=== PATIENT | female | born 1965 | race American Indian/Alaskan Native ===

== ENCOUNTER 2017-09-12 02:22 | Emergency (ER) | payer MEDICARE ==
[2017-09-12] MEDS ORDERED: VITAMIN B-1 100 MG, FOLVITE 1 MG, INFUVITE 10 ML, MAGNESIUM SULFATE 2 GM in NACL 0.9% 1... IV ONE (03:02)
[2017-09-12] MEDS ORDERED: ATIVAN PO ONE (03:12)
--- NOTE | 2017-09-12 03:13 | Emergency Department Report ---
HPI - General Chief Complaint: Psych Time Seen by Provider: 09/12/17 03:02 - HPI HPI: [id number] The patient is a 51-year-old female presented with a chief complaint of visual hallucinations. The patient states she drinks 4-5 beers daily and attempted to detox himself by not drinking anything the past day and a half. The patient states since 23:00 this evening she began "seeing things." The patient states she sees things "moving." And she sees "people." The patient states these seem same symptoms she had when she attempted to detox earlier this year. Patient denies other complaints Location: Mental status Duration: Since 23:00 Quality: Visual hallucinations Severity: Moderate Modifying factors: [see above] Context: [see above] Mode of transportation: [not driving] ED Past Medical Hx - Past Medical History Previous Medical History?: Yes Hx Hypertension: Yes Hx Psychiatric Treatment: Yes (PT last saw an OP provider 5 years ago) Hx HIV: Yes - Surgical History Past Surgical History?: Yes Hx Cholecystectomy: Yes Additional Surgical History: . tubal ligation - Family History Family history: no significant - Social History Smoking Status: Never Smoker Substance Use Type: Alcohol - Medications Home Medications: Home Medications Medication Instructions Recorded Confirmed Last Taken Type Atazanavir Sulfate [Reyataz] 200 mg PO DAILY 04/01/14 10/23/14 10/22/14 History Emtricitabin/Tenofovir [TRUVADA 1 tab PO DAILY 04/01/14 10/23/14 10/22/14 History 200-300 mg] Ferrous Sulfate [Feosol] 325 mg PO BID #60 tablet 04/01/14 10/23/14 Unknown Rx Gabapentin [Neurontin] 600 mg PO Q8H 04/01/14 10/23/14 10/22/14 History Ritonavir [Norvir] 100 mg PO QDAY 04/01/14 10/23/14 10/22/14 History medroxyPROGESTERone ACETATE 10 mg PO QDAY #5 tablet 04/01/14 10/23/14 Unknown Rx [Provera] oxyCODONE /ACETAMINOPHEN [Percocet 1 tab PO Q6HR PRN #14 tablet 04/01/14 Unknown Rx 5/325 mg] Amoxicillin/K Clav Tab [Augmentin 1 tab PO Q12HR #20 tab 09/10/16 Unknown Rx 875 mg] Azithromycin [Zithromax Z-HEVER] 250 mg PO DAILY #6 tab 09/10/16 Unknown Rx HYDROcodone/APAP 7.5-325 [Cicero 1 each PO Q8HR PRN #15 tablet 09/10/16 Unknown Rx 7.5-325 mg TAB] Ibuprofen [Motrin] 800 mg PO Q8HR PRN #14 tablet 09/10/16 Unknown Rx ED Review of Systems ROS: Stated complaint: MH Other details as noted in HPI Comment: All other systems reviewed and negative Constitutional: denies: chills, fever Eyes: denies: eye pain, eye discharge, vision change ENT: denies: ear pain, throat pain Respiratory: denies: cough, shortness of breath, wheezing Cardiovascular: denies: chest pain, palpitations Endocrine: no symptoms reported Gastrointestinal: denies: abdominal pain, nausea, diarrhea Genitourinary: denies: urgency, dysuria, discharge Musculoskeletal: denies: back pain, joint swelling, arthralgia Skin: denies: rash, lesions Neurological: denies: headache, weakness, paresthesias Psychiatric: visual hallucinations Hematological/Lymphatic: denies: easy bleeding, easy bruising Physical Exam - Physical Exam Vital Signs: Vital Signs 09/12/17 09/12/17 09/12/17 02:26 02:29 02:58 Temperature 97.5 F L 97.5 F L 97.6 F Pulse Rate 96 H 113 H 97 H Respiratory 20 20 16 Rate Blood Pressure 180/115 180/115 Blood Pressure 175/110 [Right] O2 Sat by Pulse 100 100 99 Oximetry Physical Exam: GENERAL: The patient is well-developed well-nourished female sitting on stretcher not appearing to be in acute distress. [] HEENT: Normocephalic. Atraumatic. Extraocular motions are intact. Patient has moist mucous membranes. No nystagmus NECK: Supple. No meningitic signs are noted. Trachea midline CHEST/LUNGS: Clear to auscultation. There is no respiratory distress noted. HEART/CARDIOVASCULAR: Regular. There is no tachycardia. There is no gallop rub or murmur. ABDOMEN: Abdomen is soft, nontender. Patient has normal bowel sounds. There is no abdominal distention. SKIN: There is no rash. There is no edema. There is no diaphoresis. NEURO: The patient is awake, alert, and oriented. The patient is cooperative. The patient has no focal neurologic deficits. The patient has normal speech. Cranial nerves II through XII grossly intact, no drift MUSCULOSKELETAL: There is no evidence of acute injury. ED Course Vital Signs 09/12/17 09/12/17 09/12/17 02:26 02:29 02:58 Temperature 97.5 F L 97.5 F L 97.6 F Pulse Rate 96 H 113 H 97 H Respiratory 20 20 16 Rate Blood Pressure 180/115 180/115 Blood Pressure 175/110 [Right] O2 Sat by Pulse 100 100 99 Oximetry ED Medical Decision Making - Lab Data Result diagrams: 09/12/17 02:53 09/12/17 02:53 - Differential Diagnosis alcohol withdrawal, psychotic break, delusional Critical care attestation.: If time is entered above; I have spent that time in minutes in the direct care of this critically ill patient, excluding procedure time. ED Disposition Clinical Impression: Alcohol abuse, Alcohol withdrawal Disposition: [id number] PSY HOSP/PSY UNIT Is pt being admited?: No Does the pt Need Aspirin: No Condition: Fair Time of Disposition: 05:07 (awaiting acceptance)
[2017-09-12 03:29] LABS: Anion Gap 16 mmol/L; BUN/Creatinine Ratio 9; Blood Urea Nitrogen 7 mg/dL (7-17); Calcium 8.5 mg/dL (8.4-10.2); Carbon Dioxide 27 mmol/L (22-30); Chloride 94.4 mmol/L (98-107); Glucose 100 mg/dL (65-100); Potassium 3.9 mmol/L (3.6-5.0); Sodium 133 mmol/L (137-145)
[2017-09-12 03:33] LABS: Basophils % (Auto) 0.7 % (0.0-1.8); Eosinophils % (Auto) 0.9 % (0.0-4.3); Hematocrit 37.4 % (30.3-42.9); Hemoglobin 12.5 gm/dl (10.1-14.3); Mean Corpuscular HGB Conc 34 % (30-34); Mean Corpuscular Hemoglobin 31 pg (28-32); Mean Corpuscular Volume 94 fl (79-97); Platelet Count 303 K/mm3 (140-440); Red Blood Count 3.99 M/mm3 (3.65-5.03); Red Cell Distribution Width 15.2 % (13.2-15.2); White Blood Count 5.4 K/mm3 (4.5-11.0)
[2017-09-12] MEDS ORDERED: ATIVAN IV PRN ×3 (05:07)
[2017-09-12 09:54] LABS: Urine Drugs of Abuse Note Disclamer
[2017-09-12 10:14] LABS: Bilirubin,Urine NEG (Negative); Blood,Urine NEG (Negative); Ketones,Urine TR mg/dL (Negative); Leukocyte Esterase,Urine NEG (Negative); Mucus,Urine FEW /HPF; Nitrite,Urine NEG (Negative); Protein,Urine <15 mg/dL mg/dL (Negative); Urobilinogen,Urine < 2.0 mg/dL (<2.0); WBC,Urine < 1.0 /HPF (0.0-6.0)
[2017-09-12 10:17] LABS: RBC,Urine < 1.0 /HPF (0.0-6.0)
[2017-09-12 14:25] VITALS: BP 138/88
== END 2017-09-12 14:28 ==
LOC: ED 02:22
DX: F10.239 Alcohol dependence with withdrawal, unspecified (principal); I10 Essential (primary) hypertension
CPT/HCPCS: 36415; 80048; 80307; 81001; 83735; 84703; 85025; 96365; 96366; 96375; 99285; G0480; J2060; J3411; J3475; J7030; 80320